=== PATIENT | male | born 1990 | race Caucasian/White ===

== ENCOUNTER 2023-05-12 22:49 | Emergency (ER) | payer OTHER ==
[~2023-05-12] VITALS: Ht 180.3 cm; Wt 83.9 kg
[2023-05-12] MEDS ORDERED: BASAGLAR K100 UNIT/1 SC (22:56)
[2023-05-13 04:00] VITALS: BP 112/62
== END 2023-05-13 04:45 | disposition home or self-care (01) ==
LOC: ER 22:49
DX: T40.411A Poisoning by fentanyl or fentanyl analogs, accidental (unintentional), initial encounter (principal); X58.XXXA Exposure to other specified factors, initial encounter
CPT/HCPCS: 82947; 93005; 93010; 96360; 96361; 99285-25; J0153; J7030

== ENCOUNTER 2023-08-30 13:49 | Emergency (ER) | payer OTHER ==
[~2023-08-30] VITALS: Ht 185.4 cm; Wt 74.8 kg
[~2023-08-30 13:49] MED LIST: BASAGLAR K100 UNIT/1 SC
[2023-08-30 14:25] VITALS: BP 154/92
== END 2023-08-30 15:10 ==
LOC: ER 13:49
DX: S61.411A Laceration without foreign body of right hand, initial encounter (principal); W26.8XXA Contact with other sharp object(s), not elsewhere classified, initial encounter; Z79.4 Long term (current) use of insulin
CPT/HCPCS: 12001; 90471; 90714; 99283-25